=== PATIENT | female | born 1925 | race Caucasian/White ===

== ENCOUNTER 2017-04-25 13:23 | Emergency (ER) | payer MEDICARE, BC ==
[2017-04-25 13:39] VITALS: BP 166/60
[2017-04-25 14:34] LABS: CHLORIDE,CL 102 mmol/L (98-107); SODIUM,NA 139 mmol/L (136-145)
[2017-04-25] MEDS ORDERED: Take Home: predniSONE 20 MG, 2 Tab Pack PO ONE (15:06)
--- NOTE | 2017-04-27 08:52 | ER ---
Date of Service: 04/25/2017 SUBJECTIVE: Lauryn presents to the emergency room with complaints of hearing difficulty. The patient states that she has noticed difficulty with her hearing for several months. She states that she went to the [facility] today for lunch with her , and states that the ambient sound in the room made it very difficult to hear. She states that she was experiencing a "whooshing" type of sound while she was in the room as well as a mild headache. The patient states that she has experienced some intermittent headache in the past. She states that this hearing difficulty is chronic, but has been worse over the past several weeks. PAST MEDICAL HISTORY: 1. Hypertension. 2. Cataract. 3. Chronic hearing loss. MEDICATIONS: 1. Enalapril. 2. Hydrochlorothiazide. 3. Wittmann. 4. Vitamin C. 5. Aspirin. 6. Calcium plus D. 7. Colace. 8. Milk of magnesia. 9. Multivitamin. 10.Senokot. 11.Gabapentin. 12.Plaquenil. 13.Lactulose. 14.Prednisone. ALLERGIES: 1. Penicillin. 2. Codeine. 3. Dexamethasone. 4. Erythromycin. 5. Tobramycin. REVIEW OF SYSTEMS: General: Denies fever or chills. HEENT: Please see history of present illness. Denies any visual difficulties. Respiratory: No shortness of breath. Cardiac: Denies any substernal chest pain. No jaw, arm, neck, or back pain. GI: No nausea, vomiting, or diarrhea. No melena, hematochezia, or hematemesis. : Denies any dysuria. Musculoskeletal: No myalgias or arthralgias. Neurologic: No fainting, blackouts, or lightheadedness. No difficulties with speech or ambulation. No significant increase in confusion. No numbness or tingling in her extremities or face. Denies any vertigo. PHYSICAL EXAMINATION: General: An 89-year-old female patient, in no acute distress. Vital Signs: Blood pressure is 166/60, heart rate is 68, temperature is 36.1, respiratory rate is 18, and O2 saturation is 94%. Skin: Warm, pink, and dry. HEENT: Head is normocephalic, atraumatic. Eyes: PERRLA. Extraocular movements are intact. Ears: She does have some mild cerumen, but the tympanic membrane is visible past this. There is no complete blockage of the external canals. There is a mild amount of fluid behind both of her tympanic membranes. Mouth: Oral mucosa is moist. Lungs: Clear to auscultation. Heart: Regular rate and rhythm. Abdomen: Soft, nontender. There is no hepatosplenomegaly or mass noted. Extremities: Without edema. Neurologic: The patient is alert, oriented, answers all questions appropriately. Her speech is fluent. Her gait is within normal limits. Her Romberg is negative. She has no pronator drift. She has 5/5 strength in both of her upper and lower extremities. IMAGING DATA: CT scan of the patient's brain was obtained and there was no evidence of any acute pathology. LABORATORY DATA: WBC 11.9, hemoglobin 14.6, platelets 232. Coag: PT is 9.9, INR is 0.9. Chemistry: Sodium is 139, potassium is 5.0, chloride is 102, bicarb is 32, BUN is 27, creatinine is 1.1, creatinine clearance is 24.90, GFR is 47, glucose is 179, calcium is 9.44, total bilirubin is 0.7, AST is 13, ALT is 30, alkaline phosphatase is 58, troponin is less than 0.017, C-reactive protein is less than 0.2, total protein is 6.2, albumin is 3.2, TSH is 3.132. Her EKG was obtained showing a sinus rhythm without any acute ST or T-wave abnormalities. ASSESSMENT: Abnormal auditory function. PLAN: The patient will be discharged. Advised her to follow up with her primary care provider in the next 14 days. She is to return to the emergency room if she develops any worsening headache, confusion, decreased level of consciousness, difficulty with speech or ambulation. All questions were answered. MWK: 04/27/2017 03:12:24 MODL: 04/27/2017 04:30:56 /[id number]
== END 2017-04-25 15:25 | disposition home or self-care (01) ==
LOC: VM.ED 13:23
DX: R94.120 Abnormal auditory function study (principal); I10 Essential (primary) hypertension; Z88.0 Allergy status to penicillin; Z88.5 Allergy status to narcotic agent
CPT/HCPCS: 36415; 70450; 80053; 84443; 84484; 85025; 85610; 86140; 93005; 99284; A9270; 99283-GF